=== PATIENT | female | born 1990 | race Hispanic/Latino ===

== ENCOUNTER 2017-05-05 20:27 | Emergency (ER) | payer BC ==
[2017-05-05 20:51] VITALS: BP 144/86; PULSE 99; RESP 16; TEMP 98.1; O2SAT 100
--- NOTE | 2017-05-05 21:43 | C.PDOC ---
History Of Present Illness 26 year old female who presents to the ER with a complaint of pain and swelling to the right upper gum. Denies trauma, drainage or fever. Time Seen by Provider: 05/05/17 21:24 Chief Complaint (Nursing): Dental Pain History Per: Patient History/Exam Limitations: no limitations Onset/Duration Of Symptoms: Days Current Symptoms Are (Timing): Still Present Recent travel outside of the [place]: No Past Medical History Reviewed: Historical Data, Nursing Documentation, Vital Signs Vital Signs: Last Vital Signs Temp 98.1 F 05/05/17 20:45 Pulse 99 H 05/05/17 20:45 Resp 16 05/05/17 20:45 BP 144/86 05/05/17 20:45 Pulse Ox 100 05/07/17 02:34 - Medical History PMH: No Chronic Diseases Surgical History: No Surg Hx - [facility] Procedures CLOSURE SKIN & SUBCUTANEOUS NEC (05/31/13) Family History: States: Unknown Family Hx - Social History Hx Tobacco Use: No Hx Alcohol Use: No Hx Substance Use: No - Immunization History Hx Tetanus Toxoid Vaccination: Yes (less than 5 years ago) Hx Influenza Vaccination: No Hx Pneumococcal Vaccination: No Review Of Systems Constitutional: Negative for: Fever, Chills ENT: Positive for: Mouth Pain, Mouth Swelling. Negative for: Throat Pain, Throat Swelling Physical Exam - Physical Exam Appears: Non-toxic, No Acute Distress Skin: Normal Color, Warm, Dry Head: Atraumatic, Normacephalic, No Swelling (Facial) Eye(s): bilateral: Normal Inspection, EOMI Oral Mucosa: Moist Tongue: Normal Appearing, No Swelling Lips: Normal Appearing, No Swelling Teeth: Caries (right upper molar) Gingiva: Erythema, Tender, Abscess (to lingual aspect of the right upper gingiva - posterior molar area) Throat: Normal, No Erythema, No Exudate Neck: Normal, Supple, No Other (swelling) Neurological/Psych: Oriented x3, Normal Speech, Normal Cognition ED Course And Treatment O2 Sat by Pulse Oximetry: 100 (Room air) Pulse Ox Interpretation: Normal Progress Note: Motrin and penicillin administered. Patient started on antibiotics and instructed to follow up with dentist for possible I&D. Disposition Counseled Patient/Family Regarding: Diagnosis, Need For Followup, Rx Given - Disposition Referrals: Dentist, Dental office [Other] Disposition: HOME/ ROUTINE Disposition Time: 21:42 Condition: STABLE Additional Instructions: Please follw up with dentist tomorrow Take meds as directed Return to ER if worse Prescriptions: Ibuprofen [Motrin] 600 mg PO Q6H #20 tab Penicillin VK [Penicillin VK Tab] 500 mg PO Q6H #28 tab Instructions: Dental Abscess (ED) Forms: [employer] (Bengali) - Clinical Impression Clinical Impression: Dental abscess - Scribe Statement The provider has reviewed the documentation as recorded by the Scribmelo Stout All medical record entries made by the Darrylibmelo were at my direction and personally dictated by me. I have reviewed the chart and agree that the record accurately reflects my personal performance of the history, physical exam, medical decision making, and the department course for this patient. I have also personally directed, reviewed, and agree with the discharge instructions and disposition.
== END 2017-05-05 21:57 | disposition home or self-care (01) ==
LOC: C.ER 20:27
DX: K04.7 Periapical abscess without sinus (principal)